=== PATIENT | female | born 1950 | race Caucasian/White ===

== ENCOUNTER 2025-05-16 11:47 | Outpatient (RCR) | payer MEDICARE, OTHER, SELFPAY | END 2025-05-16 23:59 | disposition home or self-care (01) | LOC: RPT 11:47 | PROVIDERS: ATTENDING PHYSICIAN Psychiatry & Neurology Neurology; PRIMARYCARE PHYSICIAN Internal Medicine | DX: R25.1 Tremor, unspecified (principal); Z73.6 Limitation of activities due to disability; G20.A1 Parkinson's disease without dyskinesia, without mention of fluctuations; R26.89 Other abnormalities of gait and mobility | CPT/HCPCS: 97110; 97112; 97116; 97163; 97166; 97530; 97535 ==

== ENCOUNTER 2025-05-27 11:10 | Outpatient (RCR) | payer MEDICARE, OTHER, SELFPAY | END 2025-05-28 10:35 | disposition home or self-care (01) | LOC: RPT 11:10 | PROVIDERS: ATTENDING PHYSICIAN Psychiatry & Neurology Neurology; PRIMARYCARE PHYSICIAN Internal Medicine | DX: R25.1 Tremor, unspecified (principal); G20.A1 Parkinson's disease without dyskinesia, without mention of fluctuations; Z73.6 Limitation of activities due to disability; R26.89 Other abnormalities of gait and mobility; M54.6 Pain in thoracic spine | CPT/HCPCS: 97110; 97112; 97530; 97535 ==